=== PATIENT | male | born 1995 | race Caucasian/White ===

== ENCOUNTER 2020-08-08 06:37 | Emergency (ER) | payer OTHER ==
[2020-08-08 07:36] LABS: HEMOGLOBIN 14.5 gm/dl (14.0-17.5); RED BLOOD COUNT 4.88 M/UL (4.20-5.50); WHITE BLOOD COUNT 7.3 K/UL (4.5-11.0)
[2020-08-08 08:21] LABS: BUN/CREATININE RATIO 18 (0-10)
== END 2020-08-08 09:52 | disposition home or self-care (01) ==
LOC: ER1 06:37
PROVIDERS: Student in an Organized Health Care Education/Training Program
DX: R07.89 Other chest pain (principal); J45.909 Unspecified asthma, uncomplicated; I10 Essential (primary) hypertension; I47.1 Supraventricular tachycardia
CPT/HCPCS: 36415; 71045; 80053; 82550; 82553; 83874; 84484; 85025; 93005; 99285

== ENCOUNTER 2020-10-08 17:37 | Emergency (ER) | payer OTHER ==
[2020-10-08 18:12] LABS: HEMOGLOBIN 14.4 gm/dl (14.0-17.5); RED BLOOD COUNT 5.1 M/UL (4.20-5.50); WHITE BLOOD COUNT 6.4 K/UL (4.5-11.0)
[2020-10-08 18:34] LABS: BUN/CREATININE RATIO 16 (0-10)
== END 2020-10-08 22:10 | disposition home or self-care (01) ==
LOC: ER1 17:37
PROVIDERS: Emergency Medicine
DX: R07.9 Chest pain, unspecified (principal); J45.909 Unspecified asthma, uncomplicated
CPT/HCPCS: 71045; 80053; 82550; 82553; 83874; 84439; 84443; 84484; 85025; 85379; 93005; 99285

== ENCOUNTER 2020-12-18 22:44 | Emergency (ER) | payer OTHER ==
[2020-12-18] MEDS ORDERED: CEPHALEXIN500 MG PO (23:13)
[2020-12-18] MEDS ORDERED: BACTRIM DS TAB1 EACH PO (23:13)
== END 2020-12-18 23:50 | disposition home or self-care (01) ==
LOC: ER1 22:44
DX: S80.821A Blister (nonthermal), right lower leg, initial encounter (principal); L03.115 Cellulitis of right lower limb; X58.XXXA Exposure to other specified factors, initial encounter
CPT/HCPCS: 96372; 99283; J0696